=== PATIENT | female | born 1950 | race Caucasian/White ===

== ENCOUNTER 2022-03-06 16:29 | Emergency (ER) | payer MEDICARE ==
[2022-03-06] MEDS ORDERED: HYDROmorphone 1 MG/ML Syringe IM ONE (18:09)
== END 2022-03-06 18:35 | disposition home or self-care (01) ==
LOC: JP.ED 16:29
DX: S42.232A 3-part fracture of surgical neck of left humerus, initial encounter for closed fracture (principal); S70.02XA Contusion of left hip, initial encounter; Z79.899 Other long term (current) drug therapy; Z88.0 Allergy status to penicillin; W17.82XA Fall from (out of) grocery cart, initial encounter
CPT/HCPCS: 73060; 96372; 99283; J1170